=== PATIENT | male | born 1980 | race Asian ===

== ENCOUNTER 2020-03-20 04:32 | Emergency (ER) | payer OTHER ==
[~2020-03-20] VITALS: Ht 172.7 cm; Wt 81.6 kg
--- NOTE | 2020-03-20 04:34 | NUR ---
PT BIBA AND AMBULATED TO BED 4 WITH STEADY GAIT.
[2020-03-20 04:36] VITALS: BP 198/143
--- NOTE | 2020-03-20 04:44 | NUR ---
ERMD AT BEDSIDE
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
[2020-03-20] MEDS ORDERED: ACETAMINOPHEN 325 MG TAB PO ONE (05:00)
--- NOTE | 2020-03-20 05:11 | NUR ---
PT TAKEN TO IMAGING VIA W/C
--- NOTE | 2020-03-20 05:33 | NUR ---
PT RETURNED FROM XRAY/CT VIA W/C, VSS, IN BED IN POSITION OF COMFORT, BED LOW AND LOCKED, SIDERAILS UP, WILL CONTINUE TO MONITOR
--- NOTE | 2020-03-20 06:57 | NUR ---
PT RESTING IN BED IN POSITION OF COMFORT, BED LOW AND LOCKED, SIDERAILS UP, VSS, WILL CONTINUE TO MONITOR
--- NOTE | 2020-03-20 07:03 | NUR ---
Pt report given to JAMES BRASHER. Transfer of care at this time.
[2020-03-20 07:14] VITALS: BP 190/134
--- NOTE | 2020-03-20 07:14 | NUR ---
Patient discharged with v/s stable. Written and verbal after care instructions given and explained. Patient verbalized understanding. Ambulatory with steady gait. All questions addressed prior to discharge. Advised to follow up with PMD.
== END 2020-03-20 07:14 | disposition home or self-care (01) ==
LOC: MED 04:32
DX: R51 Headache (principal); M54.2 Cervicalgia; M54.9 Dorsalgia, unspecified; I10 Essential (primary) hypertension; F17.200 Nicotine dependence, unspecified, uncomplicated; M79.671 Pain in right foot; V89.2XXA Person injured in unspecified motor-vehicle accident, traffic, initial encounter; Y93.89 Activity, other specified; Y92.89 Other specified places as the place of occurrence of the external cause; Y99.8 Other external cause status
CPT/HCPCS: 70450; 72080; 72125; 73590; 73630; 99285